=== PATIENT | female | born 1955 | race Caucasian/White ===

== ENCOUNTER 2018-05-12 16:03 | Emergency (ER) | payer OTHER ==
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
[2018-05-17 09:22] VITALS: BP 141/85
== END 2018-05-12 19:00 | disposition home or self-care (01) ==
PROC: 09QKXZZ Repair Nasal Mucosa and Soft Tissue, External Approach (ICD-10-PCS; principal; 2018-05-12)
PROC: 0CQ0XZZ Repair Upper Lip, External Approach (ICD-10-PCS; principal; 2018-05-12)
DX: S02.2XXB Fracture of nasal bones, initial encounter for open fracture (principal); S01.511A Laceration without foreign body of lip, initial encounter; V18.2XXA Unspecified pedal cyclist injured in noncollision transport accident in nontraffic accident, initial encounter